=== PATIENT | male | born 1965 | race Caucasian/White ===

== ENCOUNTER 2018-10-31 20:53 | Emergency (ER) | payer BC ==
--- NOTE | 2018-10-31 20:55 | ER Report ---
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 She denies falling asleep an awkward position. He notes no injury or lifting. But he has pain in his right shoulder extending down his arm. Patient denies history of cervical degenerative disc disease. REVIEW OF SYSTEMS: Respiratory: No cough, no dyspnea. Cardiovascular: No chest pain, no palpitations. Gastrointestinal: No vomiting, no abdominal pain. Musculoskeletal: No back pain. Allergies: Coded Allergies: No Known Drug Allergies (Unverified , 10/31/18) Home Meds Active Scripts Methocarbamol (ROBAXIN-750) 750 Mg Tablet, 1 TAB PO TID PRN for muscle spasm relief, #20 Prov:GREG MAJOR Tsering DO 10/31/18 Reported Medications [eye drops ] No Conflict Check, OU 10/31/18 Reviewed Nurses Notes: Yes Old Medical Records Reviewed: Yes Constitutional Vital Sign - Last 24 Hours 10/31/18 20:59 Temp 98.4 Pulse 69 Resp 15 B/P (MAP) 167/95 Pulse Ox 92 O2 Delivery Room Air Physical Exam Vital signs stable, afebrile, pulse ox normal General Appearance: The patient is alert, has no immediate need for airway protection and no current signs of toxicity. No acute distress HEENT: Pupils equal and round no injection. Oropharynx without redness or exudate, mucous. Membranes are moist Respiratory: Chest is non tender, lungs are clear to auscultation. Cardiac: regular rate and rhythm Gastrointestinal: Abdomen is soft and non tender, no masses, bowel sounds normal. Musculoskeletal: Neck: Neck is supple and non tender. Patient of the cervical spine muscles reveals no tenderness. There is no agitation of his symptoms with compression of the neck and rotation. Patient does have decreased range of motion in acute spasm of the neck. Extremities have full range of motion and are non tender. Patient has full range of motion of upper extremities. Skin: No rashes or lesions. Neuro: Alert and oriented 3, nonfocal neurologic examination. Both upper extremities are neurovascularly intact. DIFFERENTIAL DIAGNOSIS: After history and physical exam differential diagnosis was considered for cervical strain, cervical radiculopathy, or use syndrome Medical Decision Making ED Course/Re-evaluation ED Course Patient was admitted to an examination room. H&P was done. The differential diagnoses was considered. On clinical examination. Patient has a nonfocal neurologic examination. I suspect he is overuse syndrome and cervical strain from driving an extended amount of time. He is prescribed Robaxin muscle relaxant. He's advised ibuprofen 60 mg 3 times daily and additional Tylenol for pain relief. Patient advised to follow-up with his primary care doctor upon returning home to [place] in several days if still having symptoms. Decision to Disposition Date: Oct 31, 2018 Decision to Disposition Time: 21:09 Depart Departure Latest Vital Signs Vital Signs Date Time Temp Pulse Resp B/P (MAP) Pulse Ox O2 Delivery O2 Flow Rate FiO2 10/31/18 20:59 98.4 69 15 167/95 92 Room Air Impression: Primary Impression: Cervical strain, acute Condition: Improved Disposition: HOME OR SELF-CARE New Scripts Methocarbamol (ROBAXIN-750) 750 Mg Tablet 1 TAB PO TID PRN for muscle spasm relief, #20 Prov: GREG MAJOR DO 10/31/18 Patient Instructions: Cervical Strain (ED) Additional Instructions: Alternate ibuprofen 200 mg 3 tablets with Tylenol 650 mg every 4 hours to control your pain. Apply heating pad to the affected area Take Robaxin muscle relaxant 3 times daily Follow-up with primary care if unimproved in 3-5 days Problem Qualifiers Primary Impression: Cervical strain, acute Encounter type: initial encounter Qualified Codes: S16.1XXA - Strain of muscle, fascia and tendon at neck level, initial encounter GREG MAJOR DO Oct 31, 2018 20:55
[2018-10-31 20:59] VITALS: BP 167/95
[2018-10-31] MEDS ORDERED: eye drops OU (21:04)
[2018-10-31] MEDS ORDERED: IBUPROFEN 600 MG TAB PO ONE (21:10)
[2018-10-31] MEDS ORDERED: METHOCARBAMOL 500 MG TAB PO ONE (21:10)
[2018-10-31] MEDS ORDERED: METH-543 PO (21:12)
== END 2018-10-31 21:24 | disposition home or self-care (01) ==
LOC: ER 21:23
DX: S16.1XXA Strain of muscle, fascia and tendon at neck level, initial encounter (principal)
CPT/HCPCS: 99283